=== PATIENT | female | born 1995 | race Caucasian/White ===

== ENCOUNTER 2024-03-18 11:21 | Emergency (ER) | payer OTHER ==
[2024-03-18 11:55] VITALS: RESP 18; TEMP 98.1; BMI 23.7
[2024-03-18] MEDS: SODIUM CHLORIDE 0.9% 1000 ML INFUS.BAG IV ONE (11:57)
[2024-03-18] MEDS: ACETAMINOPHEN 1000 MG/100 ML BAG IVPB ONE (11:58)
[2024-03-18] MEDS ORDERED: ACETAMINOPHEN INJECTION 100 ML IVPB ONE (12:00)
[2024-03-18] MEDS ORDERED: FAMOTIDINE 20 MG/50 ML IVPB 20 MG/50 ML MG IVPB ONE (12:00)
[2024-03-18] MEDS ORDERED: METOCLOPRAMIDE HCL INJECTION 10 MG/2 ML VIAL ONE (12:00)
[2024-03-18 12:19] LABS: HEMATOCRIT 49.6 % (32.4-45.2); HEMOGLOBIN 16.9 G/dL (10.7-15.3); MCH 30.6 pg (25.7-33.7); MEAN CELL VOLUME 89.9 fl (80-96); PLATELET COUNT 231.1 10^3/uL (134-434); RBC 5.52 10^6/uL (3.60-5.2); RDW 13.1 % (11.6-15.6); WHITE BLOOD COUNT 6.6 10^3/uL (4.0-10.8)
[2024-03-18 12:23] LABS: ALBUMIN 4.8 g/dl (3.4-5.0); ALK PHOS 53 U/L (45-117); ANION GAP 8 mmol/L (4-13); BILIRUBIN,TOTAL 2.4 mg/dl (0.2-1); CALCIUM 10.2 mg/dl (8.5-10.1); CHLORIDE 103 mmol/L (98-107); CO2 27 mmol/L (21-32); CREATININE 0.8 mg/dl (0.6-1.3); GLUCOSE,RANDOM 86 mg/dl (74-106); POTASSIUM 3.7 mmol/L (3.5-5.1); SGOT/AST 18 U/L (15-37); SGPT/ALT 13 U/L (7-52); SODIUM 138 mmol/L (136-145); TOT PROT 7.8 g/dl (6.4-8.2)
[2024-03-18 12:27] LABS: PLATELET ESTIMATE ADEQUATE
[2024-03-18] MEDS: FAMOTIDINE 20 MG/50 ML IVPB 20 MG/50 ML MG IVPB ONE (12:30)
[2024-03-18 12:33] LABS: HCG,QUALITATIVE URINE Negative
[2024-03-18] MEDS: METOCLOPRAMIDE HCL INJECTION 10 MG/2 ML VIAL IVPB ONE (12:47)
[2024-03-18] MEDS: SODIUM CHLORIDE 0.9% 500 ML INFUS.BAG IV ONE (13:50)
[2024-03-18] MEDS ORDERED: ONDANSETRON 4 MG/2 ML VIAL ONE (14:41)
[2024-03-18] MEDS: ONDANSETRON 4 MG/2 ML VIAL IVPUSH ONE (14:52)
[2024-03-18] MEDS ORDERED: LIDOCAINE VISCOUS 2% ORAL/TOP 15 ML UNIT-DOSE CUP ONE (15:24)
[2024-03-18] MEDS: LIDOCAINE VISCOUS 2% ORAL/TOP 15 ML UNIT-DOSE CUP MM ONE (15:28)
[2024-03-18 16:21] VITALS: BP 122/79; PULSE 61
== END 2024-03-18 16:46 | disposition home or self-care (01) ==
LOC: FER 11:21
PROC: 3E033GC Introduction of Other Therapeutic Substance into Peripheral Vein, Percutaneous Approach (ICD-10-PCS; principal; 2024-03-18)
PROC: 3E033GC Introduction of Other Therapeutic Substance into Peripheral Vein, Percutaneous Approach (ICD-10-PCS; 2024-03-18)
PROC: 3E033GC Introduction of Other Therapeutic Substance into Peripheral Vein, Percutaneous Approach (ICD-10-PCS; 2024-03-18)
PROC: 3E033GC Introduction of Other Therapeutic Substance into Peripheral Vein, Percutaneous Approach (ICD-10-PCS; 2024-03-18)
PROC: 3E033NZ Introduction of Analgesics, Hypnotics, Sedatives into Peripheral Vein, Percutaneous Approach (ICD-10-PCS; 2024-03-18)
DX: R11.2 Nausea with vomiting, unspecified (principal); E80.6 Other disorders of bilirubin metabolism; R51.9 Headache, unspecified; Z20.822 Contact with and (suspected) exposure to COVID-19
CPT/HCPCS: 0241U-QW; 36415; 74177-TC; 76705-TC; 80053; 81003; 82248; 83690; 83735; 84703; 85027; 99285-25; J0131; Q9967